=== PATIENT | male | born 2000 | race Caucasian/White ===

== ENCOUNTER 2020-05-02 16:23 | Emergency (ER) | payer SELFPAY ==
[~2020-05-02] VITALS: Ht 182.8 cm; Wt 127.0 kg
[~2020-05-02 16:23] MED LIST: KENALOG 0.1% LO60 ML TP
[2020-05-02 16:29] VITALS: BP 136/81
[2020-05-02] MEDS ORDERED: SEPTDS PO (16:41)
[2020-05-02] MEDS ORDERED: IBUPROFEN600 MG PO (16:41)
== END 2020-05-02 20:20 | disposition home or self-care (01) ==
LOC: ED 16:23
DX: L60.0 Ingrowing nail (principal)